=== PATIENT | male | born 1995 | race Caucasian/White ===

== ENCOUNTER 2022-03-24 09:20 | Emergency (ER) | payer MEDICAID ==
[~2022-03-24] VITALS: Ht 167 cm; Wt 62.0 kg
[2022-03-24 10:01] LABS: BASOPHILS % (AUTO) 0 % (0-10); EOSINOPHILS # (AUTO) 0.2 10^3/uL (0.0-0.3); EOSINOPHILS % (AUTO) 2 % (0-10); HEMATOCRIT 48 % (40-54); HEMOGLOBIN 16.1 g/dL (13.3-17.7); LYMPHOCYTES # (AUTO) 3.2 10^3/uL (1.0-4.0); LYMPHOCYTES % (AUTO) 33 % (12-44); MEAN CORPUSCULAR HEMOGLOBIN 30 pg (25-34); MEAN CORPUSCULAR HGB CONC 34 g/dL (32-36); MEAN CORPUSCULAR VOLUME 89 fL (80-99); MEAN PLATELET VOLUME 9.8 fL (9.0-12.2); MONOCYTES % (AUTO) 10 % (0-12); NEUTROPHILS # (AUTO) 5.4 10^3/uL (1.8-7.8); NEUTROPHILS % (AUTO) 55 % (42-75); PLATELET COUNT 302 10^3/uL (130-400); WHITE BLOOD COUNT 9.8 10^3/uL (4.3-11.0)
--- NOTE | 2022-03-24 10:02 | ED Abdominal Pain ---
General Chief Complaint: Abdominal/GI Problems Stated Complaint: ABD PAIN Nursing Triage Note: PT STATES RT ABD PAIN UNDER HIS RIBS FOR ABOUT 4 DAYS, WORSE TODAY, DENIES URINARY ISSUES, LAST BM YESTERDAY BUT IS HAVING ISSUES WITH CONSTIPATION Source of Information: Patient History of Present Illness Date Seen by Provider: Mar 24, 2022 Time Seen by Provider: 09:43 Allergies and Home Medications Allergies Coded Allergies: No Known Drug Allergies (Unverified , 03/24/22) Patient Home Medication List Levofloxacin (Levofloxacin) 500 Mg Tablet, 500 MG PO DAILY Prescribed by: SARAH BURGOS on 03/24/22 1141 Naproxen (Naproxen) 500 Mg Tablet.dr, 500 MG PO BID Prescribed by: SARAH BURGOS on 03/24/22 1141 Past Lqicuwy-Axmmxp-Cvttiz Hx Patient Social History Tobacco Use?: Yes Tobacco type used: Cigarettes Smoking Status: Current Everyday Smoker Substance use?: No Alcohol Use?: No Past Medical History Surgery/Hospitalization HX: APPENDECTOMY, RT HAND FX Physical Exam Vital Signs Vital Signs - First Documented 03/24/22 09:41 Temp 36.1 Pulse 63 Resp 18 B/P (MAP) 122/86 (98) Pulse Ox 100 O2 Delivery Room Air Capillary Refill : Less Than 3 Seconds Height/Weight/BMI Height: '" Weight: lbs. oz. kg; 22.00 BMI Method: Progress/Results/Core Measures Results/Orders Lab Results Laboratory Tests Test 03/24/22 09:50 03/24/22 10:15 Range/Units White Blood Count 9.8 4.3-11.0 10^3/uL Red Blood Count 5.42 4.30-5.52 10^6/uL Hemoglobin 16.1 13.3-17.7 g/dL Hematocrit 48 40-54 % Mean Corpuscular Volume 89 80-99 fL Mean Corpuscular Hemoglobin 30 25-34 pg Mean Corpuscular Hemoglobin Concent 34 32-36 g/dL Red Cell Distribution Width 12.9 10.0-14.5 % Platelet Count 302 130-400 10^3/uL Mean Platelet Volume 9.8 9.0-12.2 fL Immature Granulocyte % (Auto) 0 % Neutrophils (%) (Auto) 55 42-75 % Lymphocytes (%) (Auto) 33 12-44 % Monocytes (%) (Auto) 10 0-12 % Eosinophils (%) (Auto) 2 0-10 % Basophils (%) (Auto) 0 0-10 % Neutrophils # (Auto) 5.4 1.8-7.8 10^3/uL Lymphocytes # (Auto) 3.2 1.0-4.0 10^3/uL Monocytes # (Auto) 1.0 0.0-1.0 10^3/uL Eosinophils # (Auto) 0.2 0.0-0.3 10^3/uL Basophils # (Auto) 0.0 0.0-0.1 10^3/uL Immature Granulocyte # (Auto) 0.0 0.0-0.1 10^3/uL Erythrocyte Sedimentation Rate 1 0-15 MM/HR Sodium Level 141 135-145 MMOL/L Potassium Level 4.1 3.6-5.0 MMOL/L Chloride Level 107 98-107 MMOL/L Carbon Dioxide Level 26 21-32 MMOL/L Anion Gap 8 5-14 MMOL/L Blood Urea Nitrogen 20 H 7-18 MG/DL Creatinine 0.91 0.60-1.30 MG/DL Estimat Glomerular Filtration Rate 121 BUN/Creatinine Ratio 22 Glucose Level 105 70-105 MG/DL Calcium Level 9.6 8.5-10.1 MG/DL Corrected Calcium 8.5-10.1 MG/DL Total Bilirubin 0.3 0.1-1.0 MG/DL Aspartate Amino Transf (AST/SGOT) 20 5-34 U/L Alanine Aminotransferase (ALT/SGPT) 38 0-55 U/L Alkaline Phosphatase 61 40-136 U/L C-Reactive Protein High Sensitivity 0.06 0.00-0.50 MG/DL Total Protein 7.6 6.4-8.2 GM/DL Albumin 4.8 H 3.2-4.5 GM/DL Amylase Level 62 25-125 U/L Lipase 30 8-78 U/L Urine Color YELLOW Urine Clarity CLEAR Urine pH 6.5 5-9 Urine Specific Merom 1.025 H 1.016-1.022 Urine Protein NEGATIVE NEGATIVE Urine Glucose (UA) NEGATIVE NEGATIVE Urine Ketones NEGATIVE NEGATIVE Urine Nitrite NEGATIVE NEGATIVE Urine Bilirubin NEGATIVE NEGATIVE Urine Urobilinogen 0.2 < = 1.0 MG/DL Urine Leukocyte Esterase TRACE H NEGATIVE Urine RBC (Auto) NEGATIVE NEGATIVE Urine RBC NONE /HPF Urine WBC 2-5 /HPF Urine Squamous Epithelial Cells RARE /HPF Urine Crystals PRESENT H /LPF Urine Amorphous Sediment RARE MARNI URATES H /LPF Urine Bacteria FEW H /HPF Urine Casts NONE /LPF Urine Mucus SMALL H /LPF Urine Culture Indicated YES Urine Opiates Screen NEGATIVE NEGATIVE Urine Oxycodone Screen NEGATIVE NEGATIVE Urine Methadone Screen NEGATIVE NEGATIVE Urine Propoxyphene Screen NEGATIVE NEGATIVE Urine Barbiturates Screen NEGATIVE NEGATIVE Ur Tricyclic Antidepressants Screen NEGATIVE NEGATIVE Urine Phencyclidine Screen NEGATIVE NEGATIVE Urine Amphetamines Screen NEGATIVE NEGATIVE Urine Methamphetamines Screen NEGATIVE NEGATIVE Urine Benzodiazepines Screen NEGATIVE NEGATIVE Urine Cocaine Screen NEGATIVE NEGATIVE Urine Cannabinoids Screen POSITIVE H NEGATIVE My Orders Orders - SARAH BURGOS DO Ed Iv/Invasive Line Start (03/24/22 09:42) Amylase (03/24/22 09:42) Cbc With Automated Diff (03/24/22 09:42) Comprehensive Metabolic Panel (03/24/22 09:42) Hs C Reactive Protein (03/24/22 09:42) Drug Screen Stat (Urine) (03/24/22 09:42) Lipase (03/24/22 09:42) Ua Culture If Indicated (03/24/22 09:42) Erythrocyte Sedimentation Rate (03/24/22 09:42) Urine Culture (03/24/22 10:15) Ketorolac Injection (Toradol Injection) (03/24/22 11:00) Ct Abdomen/Pelvis W (03/24/22 10:50) Acute Abd Series (03/24/22 10:50) Potassium Chloride (Tablet) (Klor Con Ta (03/24/22 11:00) Iohexol Injection (Omnipaque 350 Mg/Ml 1 (03/24/22 11:00) Ns (Ivpb) (Sodium Chloride 0.9% Ivpb Bag (03/24/22 11:00) Ceftriaxone 1 Gm Pre-Mix (Rocephin 1 Gm (03/24/22 11:45) Ed Iv/Invasive Line Start (03/24/22 11:31) Lactated Ringers (Lr 1000 Ml Iv Solution (03/24/22 11:45) Medications Given in ED Current Medications Medications Dose Ordered Sig/Yoselin Route Start Time Stop Time Status Last Admin Dose Admin Ceftriaxone Sodium/Dextrose 50 ml @ 100 mls/hr ONCE ONCE IV 03/24/22 11:45 03/24/22 12:14 DC 03/24/22 11:49 100 MLS/HR Iohexol 100 ml ONCE ONCE IV 03/24/22 11:00 03/24/22 11:01 DC 03/24/22 11:10 71 ML Ketorolac Tromethamine 30 mg ONCE ONCE IVP 03/24/22 11:00 03/24/22 11:01 DC 03/24/22 11:14 30 MG Lactated Ringer's 1,000 ml @ 0 mls/hr Q0M ONCE IV 03/24/22 11:45 03/24/22 11:46 DC 03/24/22 11:49 1,000 MLS/HR Sodium Chloride 100 ml ONCE ONCE IV 03/24/22 11:00 03/24/22 11:01 DC 03/24/22 11:11 80 ML Vital Signs/I&O 03/24/22 03/24/22 09:41 11:14 Temp 36.1 36.1 Pulse 63 Resp 18 B/P (MAP) 122/86 (98) Pulse Ox 100 O2 Delivery Room Air Blood Pressure Mean: [address] ABDOMEN/PELVIS--PER RADIOLOGIST REPORT AT 1130 INDICATION: Right upper quadrant abdominal pain There is no focal hepatic, gallbladder, pancreatic or splenic abnormality. Adrenal glands and kidneys are also unremarkable. There is no biliary ductal dilatation. Note is made of pectus excavatum. The appendix is surgically absent. There is no evidence of organized fluid collection. Unopacified urinary bladder may have mild mural thickening. There is no evidence of abscess or acute osseous abnormality. IMPRESSION: Possible mild urinary bladder wall thickening. Correlation with urinalysis would be of value to exclude cystitis. ACUTE ABDOMEN XRAYS--PER RADIOLOGIST REPORT AT 1139 FINDINGS: LUNGS/ PLEURA: Lungs are clear. There is no pneumothorax. There is no pleural effusion. MEDIASTINUM: Unremarkable. PULMONARY VASCULATURE: Unremarkable. HEART: Unremarkable. BONES/ EXTRATHORACIC SOFT TISSUE: Unremarkable. ABDOMEN AND PELVIS: Unremarkable x-ray of the abdomen with nonobstructed bowel gas pattern. There is no evidence of abdominal free air. Excreted contrast within the ureters and bladder is seen. There is a small amount of stool throughout the colon noted. There are no focal calcifications overlying the expected regions/ pathways of both kidneys, ureters, and bladder regions. IMPRESSION: 1: There is no radiographic evidence of acute cardiopulmonary process. 2: Unremarkable x-ray of the abdomen. Reviewed: Reviewed by Me Departure Impression Primary Impression: Urinary tract infection Disposition: HOME, SELF-CARE Condition: Stable Departure-Patient Inst. Decision time for Depature: 11:39 Referrals: NO,LOCAL PHYSICIAN (PCP/Family) Primary Care Physician Patient Instructions: Urinary Tract Infection, Adult ED Add. Discharge Instructions: HOME, REST LOTS 0F CLEAR LIQUIDS--WATER, BROTH, JELLO, GATORADE NO COFFEE, POP OR TEA NO MARIJUANA FOLLOW UP WITH OF CHOICE IN 3-4 DAYS FOR FURTHER CARE RETURN TO ER IF SYMPTOMS WORSEN All discharge instructions reviewed with patient and/or family. Voiced understanding. Scripts Naproxen (Naproxen) 500 Mg Tablet.dr 500 MG PO BID, #20 TAB Prov: SARAH BURGOS DO 03/24/22 Levofloxacin (Levofloxacin) 500 Mg Tablet 500 MG PO DAILY, #7 TAB 0 Refills Prov: SARAH BURGOS DO 03/24/22 Work/School Note: Work Release Form Date Seen in the Emergency Department: Mar 24, 2022 Return to Work: Mar 25, 2022 SARAH BURGOS DO Mar 24, 2022 10:02
[2022-03-24 10:21] LABS: ALANINE AMINOTRANSFERASE 38 U/L (0-55); ALBUMIN 4.8 GM/DL (3.2-4.5); ALKALINE PHOSPHATASE 61 U/L (40-136); AMYLASE 62 U/L (25-125); BILIRUBIN,TOTAL 0.3 MG/DL (0.1-1.0); BUN/CREATININE RATIO 22; CALCIUM 9.6 MG/DL (8.5-10.1); CARBON DIOXIDE 26 MMOL/L (21-32); CHLORIDE 107 MMOL/L (98-107); CREATININE SERUM 0.91 MG/DL (0.60-1.30); GFR ESTIMATED 121; GLUCOSE 105 MG/DL (70-105); LIPASE 30 U/L (8-78); POTASSIUM 4.1 MMOL/L (3.6-5.0); SODIUM 141 MMOL/L (135-145); TOTAL PROTEIN 7.6 GM/DL (6.4-8.2)
[2022-03-24 10:24] LABS: BILIRUBIN,URINE NEGATIVE (NEGATIVE); CLARITY,URINE CLEAR; COLOR,URINE YELLOW; GLUCOSE, URINE (UA) NEGATIVE (NEGATIVE); KETONES,URINE NEGATIVE (NEGATIVE); LEUKOCYTE ESTERASE ,URINE TRACE (NEGATIVE); NITRITE,URINE NEGATIVE (NEGATIVE); PH,URINE 6.5 (5-9); PROTEIN,URINE NEGATIVE (NEGATIVE)
[2022-03-24 10:39] LABS: BACTERIA,URINE FEW /HPF; SQUAMOUS EPITHELIAL CELL,UR RARE /HPF
[2022-03-24 10:40] LABS: AMORPHOUS SEDIMENT,UR RARE AMOR URATES /LPF
[2022-03-24 10:43] LABS: CANNABINOID SCREEN, URINE POSITIVE (NEGATIVE)
[2022-03-24 10:44] LABS: AMPHETAMINE SCREEN, URINE NEGATIVE (NEGATIVE); BARBITURATE SCREEN URINE NEGATIVE (NEGATIVE); BENZODIAZEPINES SCREEN URINE NEGATIVE (NEGATIVE); COCAINE SCREEN URINE NEGATIVE (NEGATIVE); METHADONE STAT NEGATIVE (NEGATIVE); OPIATE SCREEN URINE NEGATIVE (NEGATIVE); OXYCODONE STAT NEGATIVE (NEGATIVE); PROPOXYPHENE STAT NEGATIVE (NEGATIVE); TRICYCLIC ANTIDEPRESSANTS SCRE NEGATIVE (NEGATIVE)
[2022-03-24 10:49] LABS: ERYTHROCYTE SEDIMENTATION RATE 1 MM/HR (0-15)
[2022-03-24] MEDS ORDERED: KCL 10 MEQ TAB (MICRO K) PO ONE (11:00)
[2022-03-24] MEDS: IOHEXOL 350 MG/ML 100 ML (OMNIPAQUE 350) VIAL IV ONE (11:10)
[2022-03-24] MEDS: NS 100 ML (IVPB) BAG IV ONE (11:11)
[2022-03-24] MEDS: KETOROLAC 30 MG/ML VIAL IVP ONE (11:14)
--- NOTE | 2022-03-24 11:20 | Diagnostic Imaging Report ---
PROCEDURE: CT abdomen and pelvis with contrast. TECHNIQUE: Multiple contiguous axial images were obtained through the abdomen and pelvis after administration of intravenous contrast. Auto Exposure Controls were utilized during the CT exam to meet ALARA standards for radiation dose reduction. All CT scans use one or more of the following dose optimizing techniques: automated exposure control, MA and/or KvP adjustment based on patient size and exam type or iterative reconstruction. INDICATION: Right upper quadrant abdominal pain There is no focal hepatic, gallbladder, pancreatic or splenic abnormality. Adrenal glands and kidneys are also unremarkable. There is no biliary ductal dilatation. Note is made of pectus excavatum. The appendix is surgically absent. There is no evidence of organized fluid collection. Unopacified urinary bladder may have mild mural thickening. There is no evidence of abscess or acute osseous abnormality. IMPRESSION: Possible mild urinary bladder wall thickening. Correlation with urinalysis would be of value to exclude cystitis. Otherwise, no acute abnormality is seen. Dictated by: Dictated on workstation # [id number]
--- NOTE | 2022-03-24 11:34 | Diagnostic Imaging Report ---
CLINICAL INDICATIONS: Patient with right abdominal pain under his ribs for about 4 days, worse today. EXAMS: X-ray of the chest PA view and x-ray of the abdomen supine and upright views. COMPARISONS: CT scan of the abdomen and pelvis with contrast dated 03/24/2022. FINDINGS: LUNGS/ PLEURA: Lungs are clear. There is no pneumothorax. There is no pleural effusion. MEDIASTINUM: Unremarkable. PULMONARY VASCULATURE: Unremarkable. HEART: Unremarkable. BONES/ EXTRATHORACIC SOFT TISSUE: Unremarkable. ABDOMEN AND PELVIS: Unremarkable x-ray of the abdomen with nonobstructed bowel gas pattern. There is no evidence of abdominal free air. Excreted contrast within the ureters and bladder is seen. There is a small amount of stool throughout the colon noted. There are no focal calcifications overlying the expected regions/ pathways of both kidneys, ureters, and bladder regions. IMPRESSION: 1: There is no radiographic evidence of acute cardiopulmonary process. 2: Unremarkable x-ray of the abdomen. Dictated by: Dictated on workstation # [id number]
[2022-03-24] MEDS ORDERED: LEVO-55 PO (11:41)
[2022-03-24] MEDS ORDERED: NAPR500T8 PO (11:41)
[2022-03-24] MEDS: cefTRIAXone 1 GM PRE-MIX 50 ML IV ONE (11:49)
[2022-03-24] MEDS: LACTATED RINGERS 1,000 ML IV ONE (11:49)
[2022-03-24 12:36] VITALS: BP 126/84
== END 2022-03-24 12:36 | disposition home or self-care (01) ==
LOC: ER 09:24
DX: N39.0 Urinary tract infection, site not specified (principal); F17.210 Nicotine dependence, cigarettes, uncomplicated; Z90.49 Acquired absence of other specified parts of digestive tract; Z28.310 Unvaccinated for COVID-19
CPT/HCPCS: 36415; 74022; 74177; 80053; 80306; 81000; 82150; 83690; 85025; 85652; 86141; 87088